=== PATIENT | male | born 1985 | race Caucasian/White ===

== ENCOUNTER 2018-05-08 21:36 | Emergency (ER) | payer OTHER, MEDICAID, SELFPAY ==
[2018-05-08 21:53] VITALS: BP 126/83; PULSE 109; RESP 18; TEMP 36.7; O2SAT 100; BMI 22.1
--- NOTE | 2018-05-08 22:18 | DI.US.S_ITS ---
PROCEDURE: US SCROTUM INDICATIONS: SEVERE RIGHT TESTICULAR PAIN TECHNIQUE: Real-time scanning was performed of the scrotum and testicles, with image documentation. Color and pulse Doppler interrogation was performed of both testicles. COMPARISON: None. FINDINGS: Right: Testicle is normal in size at 4.2 x 3.8 x 2.7 cm, and homogenous in echotexture. Epididymis is normal in overall size and morphology. Small hydrocele. Overlying scrotal skin is normal in thickness. There is a defined focus of hypoechogenicity within the right testicle measuring 27 x 25 x 21 mm. In addition, there are smaller areas of heterogeneous echogenicity within the right testicle. Left: Testicle is normal in size at 4.3 x 2.4 x 3.1 cm, and homogeneous in echotexture. Epididymis is normal in overall size and morphology. No hydrocele or varicoceles. Overlying scrotal skin is normal in thickness. Doppler: Color and pulse Doppler demonstrate normal and symmetric arterial flow in the left testicle. There areas of decreased arterial flow within the right testicle. IMPRESSION: 1. Focus of hypoechogenicity without vascular flow in the right testicle as above. In addition, there areas of decreased flow within the right testicle as well as areas of heteroechogenicity. Recommend correlation of patient's symptoms. This appearance can be seen with areas of infarction secondary to torsion/intermittent torsion. Areas of hematoma can also be considered if there is a history of trauma. Dictated by: Haley Monte M.D. on 05/09/2018 at 8:23 Approved by: Haley Monte M.D. on 05/09/2018 at 8:27
[2018-05-08 23:15] VITALS: BP 122/73; PULSE 78; RESP 14; O2SAT 100
[2018-05-09 00:51] LABS: Add Manual Diff / Slide Review NO; Basophils Percent Auto 0.7 % (0-2); Eosinophils Percent Auto 2.9 % (2-4); Hematocrit 39.7 % (41-53); Hemoglobin 13.7 g/dL (13.5-17.5); Lymphocytes Percent Auto 34.7 % (25-40); Mean Corpuscular HGB Conc 34.4 % (30-36); Mean Corpuscular Hemoglobin 29.3 PG (26-34); Mean Corpuscular Volume 85.1 fL (80-100); Monocytes Percent Auto 9.2 % (3-14); Neutrophils Absolute Auto 4300 /uL (3000-5900); Neutrophils Percent Auto 52.5 % (50-75); Platelet Count 361 X10^3/uL (150-400); Red Blood Cell Count 4.67 X10^6/uL (4.5-5.9); Red Cell Distribution Width 12.9 % (11.6-14.8); White Blood Cell Count 8.3 X10^3/uL (4.5-11.0)
[2018-05-09 00:57] VITALS: BP 115/77; PULSE 61; RESP 16; O2SAT 96
[2018-05-09] MEDS: ONDANSETRON 4 MG ODT PREPACK 1 BOTTLE MISC (00:57)
[2018-05-09] MEDS: HYDROCODONE/ACET 5/325 PREPACK 1 BOTTLE MISC (00:57)
[2018-05-09 00:58] LABS: BUN Creatinine Ratio 18.8 (6-22); Blood Urea Nitrogen 15 mg/dL (9-20); Calcium 8.9 mg/dL (8.4-10.2); Carbon Dioxide 27 mmol/L (22-32); Chloride 104 mmol/L (98-107); Estimated Glomerular Filt Rate > 60.0 mL/min (>60); Glucose 99 mg/dL (70-100); HEMOLYSIS < 15 (0-50); Lactate Dehydrogenase 433 U/L (313-618); Sodium 144 mmol/L (137-145)
--- NOTE | 2018-05-09 19:23 | ED.MALEGU ---
HPI - Male Genitourinary General Chief complaint: Urogenital-Male Stated complaint: THINKS HIS TESTICLE IS TWISTED Time Seen by Provider: 05/08/18 22:09 Source: patient and family Mode of arrival: ambulatory Limitations: no limitations History of Present Illness HPI Narrative: 32-year-old nonsmoking male presents to the emergency department with his significant other for evaluation of episodic right testicular pain in the absence of injury since Thursday. He states he has had multiple episodes of significant pain that are crippling, bring him to his knees in produce nausea. He denies any dysuria, frequency or urgency. He denies any history of the same. He denies any injury. He had another episode this afternoon and came to the emergency department for evaluation. He states the episodes of pain are quite intense but at baseline he has a dull ache on the right testicle. He denies other symptoms such as fever chills nor nausea or vomiting MD Complaint: testicle pain and testicle swelling Onset (ago): day(s) Duration: intermittent Location: right testicle Severity: severe Quality: aching Relieving factors: none Exacerbating factors: none Reports denies other symptoms Related Data Previous Rx's Medication Instructions Recorded hydrocodone-acetaminophen 1 tab PO Q4-6H PRN #14 tab 05/09/18 ondansetron 4 mg PO TID-QID PRN #10 tab 05/09/18 Allergies Allergy/AdvReac Type Severity Reaction Status Date / Time No Known Drug Allergies Allergy Verified 05/08/18 22:00 Review of Systems Review of Systems All systems reviewed & are unremarkable except as noted in HPI and below Constitutional Denies chills, Denies fever(s), Denies lethargy and Denies weakness Eyes Denies change in vision, Denies eye discharge, Denies irritation and Denies loss of vision ENT Ears, Nose, Mouth, and Throat: Denies change in voice, Denies neck pain and Denies sore throat Cardiovascular Denies chest pain, Denies irregular heart rhythm, Denies lightheadedness, Denies palpitations, Denies dyspnea, Denies dyspnea on exertion and Denies orthopnea Respiratory Denies cough, Denies dyspnea, Denies dyspnea on exertion and Denies wheezing Gastrointestinal Gastrointestinal: Denies abdominal pain, Denies change in bowel habits, Denies diarrhea, Denies nausea and Denies vomiting Genitourinary Denies hematuria, Denies flank pain, Reports testicular pain, Denies urinary incontinence and Denies urinary urgency Musculoskeletal Denies neck pain Integumentary/Breasts Denies pruritus, Denies erythema, Denies rash and Denies wounds Neurologic Denies confusion, Denies loss of vision and Denies weakness Psychiatric Denies anxiety, Denies confusion, Denies depression, Denies homicidal ideation and Denies suicidal ideation Endocrine Denies palpitations Hematologic/Lymphatic Denies easy bruising Allergic/Immunologic Denies wheezing [facility] Social History Smoking Status: Never smoker Exam Narrative Exam Narrative: GENERAL: Pleasant 32-year-old male in mild distress, obviously anxious and in mild pain HEAD: Atraumatic. Normocephalic. No temporal or scalp tenderness. EYES: Pupils equal round and reactive. Extraocular motions intact. No scleral icterus. No injection or drainage. ENT: Nose without bleeding, purulent drainage or septal hematoma. Throat without erythema, tonsillar hypertrophy or exudate. Uvula midline. Airway patent. NECK: Trachea midline. No JVD or lymphadenopathy. Supple, nontender, no meningeal signs. CARDIOVASCULAR: Regular rate and rhythm without murmurs, gallops, or rubs. RESPIRATORY: Clear to auscultation. Breath sounds equal bilaterally. No wheezes, rales, or rhonchi. GASTROINTESTINAL: Abdomen soft, non-tender, nondistended. No hepato-splenomegaly, or palpable masses. No guarding. : Patient examined while standing. No evidence of hernia noted. Right testicle is swollen and tender, no discoloration, redness or warmth. Pain worse with palpation or elevation. EXTREMITIES: No clubbing, cyanosis, or edema. No joint tenderness, effusion, or edema noted. BACK: Nontender without deformity or crepitance. No flank tenderness. NEURO: AOx3. SKIN: No rash or erythema. Initial Vital Signs Initial Vital Signs: Vital Signs Temperature 98.1 F 05/08/18 21:53 Pulse Rate 109 H 05/08/18 21:53 Respiratory Rate 18 05/08/18 21:53 Blood Pressure 126/83 05/08/18 21:53 Pulse Oximetry 100 05/08/18 21:53 Course Orders Ordered: Discontinued Medications Hydrocodone Bitart/Acetaminophen (Vicodin Prepack) 1 bottle MISC SEEINSTR ONE Stop: 05/09/18 00:39 Last Admin: 05/09/18 00:57 Dose: 1 bottle Ondansetron HCl (Zofran Odt Prepack) 1 bottle MISC SEEINSTR ONE Stop: 05/09/18 00:39 Last Admin: 05/09/18 00:57 Dose: 1 bottle Consultations Consultation #1: Initial call to Urology at the [facility], after discussing the case they state there is very little evidence for torsion and no indication for anything other than routine follow-up. Consultation #2: A placed a 2nd call to Urology at [facility]. After discussing patient's history, physical and ultrasound that sure the opinion that a more prompt investigation is warranted but do not require him to be evaluated this evening. They recommended he be seen within the week and are happy see him at the clinic. They request labs to be ordered to help with this visit including a CBC, basic metabolic profile, alpha-fetoprotein, beta HCG. They state that the description is very unlikely to be torsion but are concerned about the hypoechoic mass and whether this may not be cancer MDM - Male Genitourinary Lab Data Result diagrams: 05/09/18 00:40 05/09/18 00:40 Lab Results 05/09/18 05/09/18 Range/Units 00:40 00:40 WBC 8.3 (4.5-11.0) X10^3/uL RBC 4.67 (4.5-5.9) X10^6/uL Hgb 13.7 (13.5-17.5) g/dL Hct 39.7 L (41-53) % MCV 85.1 (80-100) fL MCH 29.3 (26-34) PG MCHC 34.4 (30-36) % RDW 12.9 (11.6-14.8) % Plt Count 361 (150-400) X10^3/uL Neut % (Auto) 52.5 (50-75) % Lymph % (Auto) 34.7 (25-40) % [place] % (Auto) 9.2 (3-14) % Eos % (Auto) 2.9 (2-4) % Baso % (Auto) 0.7 (0-2) % Neut # (Auto) 4300 (0910-6936) /uL Sodium 144 (137-145) mmol/L Potassium 4.0 (3.4-5.1) mmol/L Chloride 104 (98-107) mmol/L Carbon Dioxide 27 (22-32) mmol/L BUN 15 (9-20) mg/dL Creatinine 0.80 (0.66-1.25) mg/dL Estimated GFR > 60.0 (>60) mL/min BUN/Creatinine Ratio 18.8 (6-22) Glucose 99 (70-100) mg/dL Calcium 8.9 (8.4-10.2) mg/dL Lactate Dehydrogenase 433 (313-618) U/L HCG, Quant Cancelled Urine Dip Bedside Urine Glucose Negative Bedside Urine Bilirubin - Negative Bedside Urine Ketone - Negative Urine Specific [place] 1.020 Bedside Urine Occult Blood - Negative Bedside Urine pH 6.5 Bedside Urine Protein - Negative Bedside Urine Urobilinogen - Negative Bedside Urine Nitrite - Negative Bedside Urine Leukocytes - Negative Esterase Imaging Data US Scrotum: Attestation: I personally reviewed and interpreted this imaging study as follows: Radiologist's impression: [place] [address] Ultrasound Report Signed Patient: Juan José Hollis#: [id number] : 1985Acct:[id number] Age/Sex: 32 / MDate of Service: 05/08/18 Loc: ED Accession Number: [id number] Procedure: US scrotum Ordering Provider: Dorian Jack D.O. PROCEDURE: US SCROTUM INDICATIONS: SEVERE RIGHT TESTICULAR PAIN TECHNIQUE: Real-time scanning was performed of the scrotum and testicles, with image documentation. Color and pulse Doppler interrogation was performed of both testicles. COMPARISON: None. FINDINGS: Right: Testicle is normal in size at 4.2 x 3.8 x 2.7 cm, and homogenous in echotexture. Epididymis is normal in overall size and morphology. Small hydrocele. Overlying scrotal skin is normal in thickness. There is a defined focus of hypoechogenicity within the right testicle measuring 27 x 25 x 21 mm. In addition, there are smaller areas of heterogeneous echogenicity within the right testicle. Left: Testicle is normal in size at 4.3 x 2.4 x 3.1 cm, and homogeneous in echotexture. Epididymis is normal in overall size and morphology. No hydrocele or varicoceles. Overlying scrotal skin is normal in thickness. Doppler: Color and pulse Doppler demonstrate normal and symmetric arterial flow in the left testicle. There areas of decreased arterial flow within the right testicle. IMPRESSION: 1. Focus of hypoechogenicity without vascular flow in the right testicle as above. In addition, there areas of decreased flow within the right testicle as well as areas of heteroechogenicity. Recommend correlation of patient's symptoms. This appearance can be seen with areas of infarction secondary to torsion/intermittent torsion. Areas of hematoma can also be considered if there is a history of trauma. Dictated by: Haley Monte M.D. on 05/09/2018 at 8:23 Approved by: Haley Monte M.D. on 05/09/2018 at 8:27 MDM Narrative Medical decision making narrative: multiple etiologies of pain and swelling considered including: Torsion - thought less likely given demonstration of flow on US (night rad) and conversation with two urologists Epididymitis - thought less likely given lack of supporting findings on US Mass/Hematoma - considered given US findings Patient set to follow up with urology and has return precautions Discharge Plan Departure Patient Disposition: Home Clinical Impression: Pain in right testicle Discharge Date/Time: 05/09/18 01:05 Interventions: ED Discharge Assessment Last Done: 05/09/18 00:57 Instructions: DI for Testicular Pain Activity Restrictions/Additional Instructions: *You have been diagnosed with [ right testicular pain, etiology to be determined with Urology follow-up ] *What to do: *Take medications as directed *Follow up with the Urology Clinic at [facility] in [place] ([phone]), call for an appointment Thursday. Let them know you were seen in the Emergency Department and that we ask that you be seen in follow up *Return to ER if you should have any new, worsening or concerning symptoms Prescriptions: New hydrocodone-acetaminophen 5-325 mg tablet 1 tab PO Q4-6H PRN (Reason: pain) Qty: 14 RF: 0 ondansetron 4 mg tablet,disintegrating 4 mg PO TID-QID PRN (Reason: nausea and vomiting) Qty: 10 RF: 0
--- NOTE | 2018-05-09 19:31 | ED_ITS ---
HPI - Male Genitourinary General Chief complaint: Urogenital-Male Stated complaint: THINKS HIS TESTICLE IS TWISTED Time Seen by Provider: 05/08/18 22:09 Source: patient and family Mode of arrival: ambulatory Limitations: no limitations History of Present Illness HPI Narrative: 32-year-old nonsmoking male presents to the emergency department with his significant other for evaluation of episodic right testicular pain in the absence of injury since Thursday. He states he has had multiple episodes of significant pain that are crippling, bring him to his knees in produce nausea. He denies any dysuria, frequency or urgency. He denies any history of the same. He denies any injury. He had another episode this afternoon and came to the emergency department for evaluation. He states the episodes of pain are quite intense but at baseline he has a dull ache on the right testicle. He denies other symptoms such as fever chills nor nausea or vomiting MD Complaint: testicle pain and testicle swelling Onset (ago): day(s) Duration: intermittent Location: right testicle Severity: severe Quality: aching Relieving factors: none Exacerbating factors: none Reports denies other symptoms Related Data Previous Rx's Medication Instructions Recorded hydrocodone-acetaminophen 1 tab PO Q4-6H PRN #14 tab 05/09/18 ondansetron 4 mg PO TID-QID PRN #10 tab 05/09/18 Allergies Allergy/AdvReac Type Severity Reaction Status Date / Time No Known Drug Allergies Allergy Verified 05/08/18 22:00 Review of Systems Review of Systems All systems reviewed & are unremarkable except as noted in HPI and below Constitutional Denies chills, Denies fever(s), Denies lethargy and Denies weakness Eyes Denies change in vision, Denies eye discharge, Denies irritation and Denies loss of vision ENT Ears, Nose, Mouth, and Throat: Denies change in voice, Denies neck pain and Denies sore throat Cardiovascular Denies chest pain, Denies irregular heart rhythm, Denies lightheadedness, Denies palpitations, Denies dyspnea, Denies dyspnea on exertion and Denies orthopnea Respiratory Denies cough, Denies dyspnea, Denies dyspnea on exertion and Denies wheezing Gastrointestinal Gastrointestinal: Denies abdominal pain, Denies change in bowel habits, Denies diarrhea, Denies nausea and Denies vomiting Genitourinary Denies hematuria, Denies flank pain, Reports testicular pain, Denies urinary incontinence and Denies urinary urgency Musculoskeletal Denies neck pain Integumentary/Breasts Denies pruritus, Denies erythema, Denies rash and Denies wounds Neurologic Denies confusion, Denies loss of vision and Denies weakness Psychiatric Denies anxiety, Denies confusion, Denies depression, Denies homicidal ideation and Denies suicidal ideation Endocrine Denies palpitations Hematologic/Lymphatic Denies easy bruising Allergic/Immunologic Denies wheezing [facility] Social History Smoking Status: Never smoker Exam Narrative Exam Narrative: GENERAL: Pleasant 32-year-old male in mild distress, obviously anxious and in mild pain HEAD: Atraumatic. Normocephalic. No temporal or scalp tenderness. EYES: Pupils equal round and reactive. Extraocular motions intact. No scleral icterus. No injection or drainage. ENT: Nose without bleeding, purulent drainage or septal hematoma. Throat without erythema, tonsillar hypertrophy or exudate. Uvula midline. Airway patent. NECK: Trachea midline. No JVD or lymphadenopathy. Supple, nontender, no meningeal signs. CARDIOVASCULAR: Regular rate and rhythm without murmurs, gallops, or rubs. RESPIRATORY: Clear to auscultation. Breath sounds equal bilaterally. No wheezes , rales, or rhonchi. GASTROINTESTINAL: Abdomen soft, non-tender, nondistended. No hepato-splenomegaly , or palpable masses. No guarding. : Patient examined while standing. No evidence of hernia noted. Right testicle is swollen and tender, no discoloration, redness or warmth. Pain worse with palpation or elevation. EXTREMITIES: No clubbing, cyanosis, or edema. No joint tenderness, effusion, or edema noted. BACK: Nontender without deformity or crepitance. No flank tenderness. NEURO: AOx3. SKIN: No rash or erythema. Initial Vital Signs Initial Vital Signs: Vital Signs Temperature 98.1 F 05/08/18 21:53 Pulse Rate 109 H 05/08/18 21:53 Respiratory Rate 18 05/08/18 21:53 Blood Pressure 126/83 05/08/18 21:53 Pulse Oximetry 100 05/08/18 21:53 Course Orders Ordered: Discontinued Medications Hydrocodone Bitart/Acetaminophen (Vicodin Prepack) 1 bottle MISC SEEINSTR ONE Stop: 05/09/18 00:39 Last Admin: 05/09/18 00:57 Dose: 1 bottle Ondansetron HCl (Zofran Odt Prepack) 1 bottle MISC SEEINSTR ONE Stop: 05/09/18 00:39 Last Admin: 05/09/18 00:57 Dose: 1 bottle Consultations Consultation #1: Initial call to Urology at the [facility], after discussing the case they state there is very little evidence for torsion and no indication for anything other than routine follow-up. Consultation #2: A placed a 2nd call to Urology at [place]. After discussing patient's history, physical and ultrasound that sure the opinion that a more prompt investigation is warranted but do not require him to be evaluated this evening. They recommended he be seen within the week and are happy see him at the clinic. They request labs to be ordered to help with this visit including a CBC, basic metabolic profile, alpha-fetoprotein, beta HCG. They state that the description is very unlikely to be torsion but are concerned about the hypoechoic mass and whether this may not be cancer MDM - Male Genitourinary Lab Data Result diagrams: 05/09/18 00:40 05/09/18 00:40 Lab Results 05/09/18 05/09/18 Range/Units 00:40 00:40 WBC 8.3 (4.5-11.0) X10^3/uL RBC 4.67 (4.5-5.9) X10^6/uL Hgb 13.7 (13.5-17.5) g/dL Hct 39.7 L (41-53) % MCV 85.1 (80-100) fL MCH 29.3 (26-34) PG MCHC 34.4 (30-36) % RDW 12.9 (11.6-14.8) % Plt Count 361 (150-400) X10^3/uL Neut % (Auto) 52.5 (50-75) % Lymph % (Auto) 34.7 (25-40) % [place] % (Auto) 9.2 (3-14) % Eos % (Auto) 2.9 (2-4) % Baso % (Auto) 0.7 (0-2) % Neut # (Auto) 4300 (4051-9453) /uL Sodium 144 (137-145) mmol/L Potassium 4.0 (3.4-5.1) mmol/L Chloride 104 (98-107) mmol/L Carbon Dioxide 27 (22-32) mmol/L BUN 15 (9-20) mg/dL Creatinine 0.80 (0.66-1.25) mg/dL Estimated GFR > 60.0 (>60) mL/min BUN/Creatinine Ratio 18.8 (6-22) Glucose 99 (70-100) mg/dL Calcium 8.9 (8.4-10.2) mg/dL Lactate Dehydrogenase 433 (313-618) U/L HCG, Quant Cancelled Urine Dip Bedside Urine Glucose Negative Bedside Urine Bilirubin - Negative Bedside Urine Ketone - Negative Urine Specific [place] 1.020 Bedside Urine Occult Blood - Negative Bedside Urine pH 6.5 Bedside Urine Protein - Negative Bedside Urine Urobilinogen - Negative Bedside Urine Nitrite - Negative Bedside Urine Leukocytes - Negative Esterase Imaging Data US Scrotum: Attestation: I personally reviewed and interpreted this imaging study as follows: Radiologist's impression: [place] [address] Ultrasound Report Signed Patient: Juan José Hollis#: [id number] : 1985Acct:[id number] Age/Sex: 32 / MDate of Service: 05/08/18 Loc: ED Accession Number: [id number] Procedure: US scrotum Ordering Provider: Dorian Jack D.O. PROCEDURE: US SCROTUM INDICATIONS: SEVERE RIGHT TESTICULAR PAIN TECHNIQUE: Real-time scanning was performed of the scrotum and testicles, with image documentation. Color and pulse Doppler interrogation was performed of both testicles. COMPARISON: None. FINDINGS: Right: Testicle is normal in size at 4.2 x 3.8 x 2.7 cm, and homogenous in echotexture. Epididymis is normal in overall size and morphology. Small hydrocele. Overlying scrotal skin is normal in thickness. There is a defined focus of hypoechogenicity within the right testicle measuring 27 x 25 x 21 mm. In addition, there are smaller areas of heterogeneous echogenicity within the right testicle. Left: Testicle is normal in size at 4.3 x 2.4 x 3.1 cm, and homogeneous in echotexture. Epididymis is normal in overall size and morphology. No hydrocele or varicoceles. Overlying scrotal skin is normal in thickness. Doppler: Color and pulse Doppler demonstrate normal and symmetric arterial flow in the left testicle. There areas of decreased arterial flow within the right testicle. IMPRESSION: 1. Focus of hypoechogenicity without vascular flow in the right testicle as above. In addition, there areas of decreased flow within the right testicle as well as areas of heteroechogenicity. Recommend correlation of patient's symptoms. This appearance can be seen with areas of infarction secondary to torsion/intermittent torsion. Areas of hematoma can also be considered if there is a history of trauma. Dictated by: Haley Monte M.D. on 05/09/2018 at 8:23 Approved by: Haley Monte M.D. on 05/09/2018 at 8:27 MDM Narrative Medical decision making narrative: multiple etiologies of pain and swelling considered including: Torsion - thought less likely given demonstration of flow on US (night rad) and conversation with two urologists Epididymitis - thought less likely given lack of supporting findings on US Mass/Hematoma - considered given US findings Patient set to follow up with urology and has return precautions Discharge Plan Departure Patient Disposition: Home Clinical Impression: Pain in right testicle Discharge Date/Time: 05/09/18 01:05 Interventions: ED Discharge Assessment Last Done: 05/09/18 00:57 Instructions: DI for Testicular Pain Activity Restrictions/Additional Instructions: *You have been diagnosed with [ right testicular pain, etiology to be determined with Urology follow-up ] *What to do: *Take medications as directed *Follow up with the Urology Clinic at [facility] in [place] ([phone]), call for an appointment Thursday. Let them know you were seen in the Emergency Department and that we ask that you be seen in follow up *Return to ER if you should have any new, worsening or concerning symptoms Prescriptions: New hydrocodone-acetaminophen 5-325 mg tablet 1 tab PO Q4-6H PRN (Reason: pain) Qty: 14 RF: 0 ondansetron 4 mg tablet,disintegrating 4 mg PO TID-QID PRN (Reason: nausea and vomiting) Qty: 10 RF: 0
[2018-05-12 13:53] LABS: Alpha Fetoprotein 0.8 ng/mL (< 6.1)
== END 2018-05-09 01:05 | disposition home or self-care (01) ==
PROVIDERS: Emergency Provider Emergency Medicine
DX: N50.811 Right testicular pain (principal)
CPT/HCPCS: 36415; 76870; 80048; 81003; 82105; 83615; 85025; 99283; 99284

== ENCOUNTER → 2018-05-20 13:04 | Outpatient (CLI) | payer OTHER, MEDICAID, SELFPAY ==
--- NOTE | 2018-05-20 | DI.US.S_ITS ---
PROCEDURE: US SCROTUM INDICATIONS: SCROTAL PAIN TECHNIQUE: Real-time scanning was performed of the scrotum and testicles, with image documentation. Color and pulse Doppler interrogation was performed of both testicles. COMPARISON: [facility], , US SCROTUM, 05/08/2018, 22:41. FINDINGS: Right: Testicle is normal in size at 4.6 x 3.3 x 2.1 cm. Tubular avascular areas of hypoechogenicity are identified within the right testicle which are more hypoechoic on the current study, compared to the previous examination; however, are smaller in size on the current study, compared to the previous exam. Increased vascularity to the right testicle is present compared to the left. Epididymis is normal in overall size and morphology. No hydrocele or varicoceles. Overlying scrotal skin is normal in thickness. Left: Testicle is normal in size at 4.2 x 3.2 x 2.3 cm, and homogeneous in echotexture. Epididymis is normal in overall size and morphology. No hydrocele or varicoceles. Overlying scrotal skin is normal in thickness. Doppler: Color and pulse Doppler demonstrate normal and symmetric arterial flow in both testicles. IMPRESSION: 1. Areas of abnormal echogenicity within the right testicle are smaller on the current exam, compared to the previous study and most likely represent resolving small abscesses versus hemorrhage. 2. Increased vascularity of the right testicle compared to the left is most suggestive of orchitis. However, increased vascularity may also be seen in the setting of trauma and clinical correlation is recommended. 3. Unremarkable left testicle. 4. No testicular masses are evidence of testicular torsion. Dictated by: Keith Davey M.D. on 05/20/2018 at 13:29 Approved by: Keith Davey M.D. on 05/20/2018 at 13:35
== END ==
PROVIDERS: PCP Nurse Practitioner Family; Visit Provider Urology
DX: N50.82 Scrotal pain (principal)
CPT/HCPCS: 76870

== ENCOUNTER → 2025-05-04 08:45 | Outpatient (CLI) | payer OTHER, SELFPAY ==
--- NOTE | 2025-05-04 08:48 | DI.US.S_ITS ---
PROCEDURE: US ABDOMEN LIMITED INDICATIONS: worried about mass or hernia TECHNIQUE: Real-time scanning was performed of the abdominal and retroperitoneal organs, with image documentation. COMPARISON: None. FINDINGS: Targeted evaluation in right abdominal wall performed per protocol. No obvious soft tissue mass or hernia or collection identified. IMPRESSION: No sonographically apparent abnormality in the area of clinical concern. If symptoms remain clinically concerning, recommend contrast-enhanced CT evaluation. Dictated by: Darlene Donovan M.D. on 05/05/2025 at 13:16 Approved by: Darlene Donovan M.D. on 05/05/2025 at 13:17
[2025-05-04 09:19] LABS: Add Manual Diff / Slide Review NO; Hematocrit 40.4 % (41-53); Hemoglobin 14.0 g/dL (13.5-17.5); Lymphocytes Absolute Auto 1900 /uL (1100-4500); Mean Corpuscular HGB Conc 34.6 % (30-36); Mean Corpuscular Hemoglobin 29.5 PG (26-34); Mean Corpuscular Volume 85.4 fL (80-100); Platelet Count 286 X10^3/uL (150-400)
[2025-05-04 09:28] LABS: Hemoglobin A1C% w Est Avg Glu 5.1 % (4.0-6.0)
[2025-05-04 09:50] LABS: Alanine Aminotransferase 34 IU/L (<50); Albumin 4.6 g/dL (3.5-5.0); Albumin Globulin Ratio 1.7 (1.0-2.8); Alkaline Phosphatase 46 U/L (38-126); Blood Urea Nitrogen 14 mg/dL (9-20); Calcium 9.3 mg/dL (8.4-10.2); Carbon Dioxide 28 mmol/L (22-32); Chloride 105 mmol/L (98-107); Cholesterol 218 mg/dL (140-199); Estimated Glomerular Filt Rate > 60 mL/min (>60); Globulin 2.7 g/dL (1.7-4.1); Glucose 93 mg/dL (70-99); HDL Cholesterol 68 mg/dL (40-60); HEMOLYSIS < 15 (0-50); Potassium 4.3 mmol/L (3.4-5.1); Sodium 139 mmol/L (137-145); Total Protein 7.3 g/dL (6.3-8.2); Triglycerides 73 mg/dL (35-150)
[2025-05-04 10:20] LABS: TSH w/ Reflex to FT4 1.64 uIU/mL (0.47-4.68)
== END ==
LOC: US 08:46
PROVIDERS: PCP Physician Assistant Medical; Referring Provider Physician Assistant Medical; Visit Provider Physician Assistant Medical
DX: R10.9 Unspecified abdominal pain (principal); Z13.6 Encounter for screening for cardiovascular disorders; Z13.29 Encounter for screening for other suspected endocrine disorder; Z13.1 Encounter for screening for diabetes mellitus; Z13.0 Encounter for screening for diseases of the blood and blood-forming organs and certain disorders involving the immune mechanism
CPT/HCPCS: 36415; 76705; 80053; 80061; 83036; 84443; 85025

== ENCOUNTER → 2025-06-05 10:25 | Outpatient (CLI) | payer OTHER, SELFPAY ==
[2025-06-05 19:29] LABS: Add Manual Diff / Slide Review NO; Hematocrit 41.9 % (41-53); Hemoglobin 14.3 g/dL (13.5-17.5); Lymphocytes Absolute Auto 2000 /uL (1100-4500); Mean Corpuscular HGB Conc 34.2 % (30-36); Mean Corpuscular Hemoglobin 29.4 PG (26-34); Mean Corpuscular Volume 86.0 fL (80-100); Platelet Count 281 X10^3/uL (150-400)
[2025-06-05 19:34] LABS: HEMOLYSIS < 15 (0-50); Iron 76 ug/dL (49-181)
[2025-06-05 19:48] LABS: Percent Iron Saturation 28 % (20-50); Total Iron Binding Capacity 269 ug/dL (261-462); Transferrin 228 mg/dL (206-381)
== END ==
PROVIDERS: PCP Physician Assistant Medical; Visit Provider Physician Assistant Medical
DX: Z13.0 Encounter for screening for diseases of the blood and blood-forming organs and certain disorders involving the immune mechanism (principal)
CPT/HCPCS: 82274; 83540; 83550; 85025